=== PATIENT | female | born 1975 | race Caucasian/White ===

== ENCOUNTER 2018-05-23 17:58 | Observation (INO) ==
[2018-05-23] MEDS ORDERED: 0.9 % Sodium Chloride 1,000 ML IVC ONE (18:16)
[2018-05-23] MEDS ORDERED: Ondansetron 4 MG/2 ML VIAL IVP ONE (18:16)
[2018-05-23] MEDS ORDERED: *HR* HYDROmorphone (PF) 1 MG/ML SYRINGE IVP ONE ×2 (18:16→19:09)
--- NOTE | 2018-05-23 18:21 | Emergency Department Note ---
Disposition Clinical Impression: Kidney stone, Flank pain, KIARRA (acute kidney injury) Disposition: Admitted As Inpatient Condition: Good Time of Disposition: 19:12 Abdominal Pain HPI - General Chief Complaint: ED Abdominal Pain Stated Complaint: Kidney stones Time Seen by Provider: 05/23/18 18:10 Source: patient Mode of arrival: ambulatory Limitations: no limitations Nursing Notes Reviewed: Yes Vital Signs Reviewed: Yes - History of Present Illness HPI Narrative: Patient presents to the ED with the chief complaint of right flank pain. Patient has a history of a right-sided obstructing stone that she is followed by urology for and needs a lithotripsy. Was supposed to get an outpatient CAT scan today, but her insurance would not pay for it. Discussed with urology and they told her to come to the ER for pain got worse or she started vomiting. She states that she started vomiting this afternoon and the pain has intensified and is in her right flank and radiates around to her right lower quadrant. This is exactly like her previous kidney stone pain in the past. She has had hematuria. No fever, chills, chest pain, shortness of breath, other abdominal pain or diarrhea. No rash. Pain Scale: 9 - Related Data Home Medications Medication Instructions Recorded Confirmed Escitalopram [Lexapro] 20 mg PO DAILY 06/01/17 05/23/18 Topiramate [Topamax] 50 mg PO HS 06/01/17 05/23/18 Fluticasone Propionate Nasal 1 spr NS DAILY 02/24/18 05/23/18 [Flonase] Montelukast [Singulair] 10 mg PO DAILY 02/24/18 05/23/18 traZODone [TraZODone] 50 mg PO HS PRN 02/24/18 05/23/18 Loratadine [Allergy Relief] 10 mg PO DAILY 03/08/18 05/23/18 Buspirone HCl [Buspar] 10 mg PO BID PRN 05/23/18 05/23/18 Doxycycline 100 mg PO BID 05/23/18 05/23/18 HYDROcodone/Acet 5/325 mg [[place] 1 tab PO BID PRN 05/23/18 05/23/18 5-325 mg] Omeprazole [PriLOSEC] 20 mg PO DAILY 05/23/18 05/23/18 Previous Rx's Medication Instructions Recorded Aspirin 81 mg PO DAILY #30 tab.chew 03/09/18 Nitroglycerin 0.4 mg SL Q5MIN PRN #30 tab.subl 03/09/18 Potassium Chloride 40 meq PO BID #1 tab.er.prt 03/09/18 Allergies Allergy/AdvReac Type Severity Reaction Status Date / Time sulfamethoxazole Allergy See Verified 03/08/18 06:49 [From Bactrim] Comments trimethoprim [From Bactrim] Allergy See Verified 03/08/18 06:49 Comments diphenhydramine AdvReac See Verified 03/08/18 06:49 [From Benadryl] Comments Review of Systems: As reviewed in the HPI. All other systems reviewed are negative or normal. 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 Psychiatric history: Reports: depression - Social History Smoking status: Current every day smoker Alcohol use: Reports: none Drug use: Reports: none Physical Exam CONSTITUTIONAL: [Appears to be in pain, alert and in no acute distress] EYES: [EOMI, clear conjunctiva, PERRLA] HENT: [Normocephalic, atraumatic, moist mucus membranes, normal oropharynx] NECK: [normal inspection, full ROM, trachea midline, no obvious swelling] PULMONARY: [normal lung sounds bilaterally, normal chest rise and fall, no respiratory distress or stridor, no wheezes, no rales, no rhonchi CARDIOVASCULAR: [regular rate, regular rhythm, normal heart sounds, no murmurs, distal extremities are warm and well perfused] GASTROINSTESTINAL: [soft, non-tender, non-rigid, non-distended, no guarding, no rebound, normal bowel sounds] GENITOURINARY/RECTAL: [deferred] NEUROLOGIC: [Alert, oriented x3, normal speech, moves all extremities] EXTREMITIES: [Normal inspection, full ROM, no tenderness, no pedal edema, normal capillary refill] MUSCULOSKELETAL: [no gross deformities, atraumatic, right flank tenderness] SKIN: [No cyanosis, no diaphoresis, normal color, warm, no rash] PSYCHIATRIC: [normal mood and affect] - General General appearance: alert, in no apparent distress Course Course Narrative: Patient presenting with known obstructing stone. We will check labs, CT, pain control. - Reevaluation(s) Reevaluation #1: CT scan shows IMPRESSION: Interval transit of obstructing right renal stone, now in the distal right ureter proximal to the ureterovesicular junction. Mild upstream hydroureteronephrosis. Interval transit of 4 mm left ureteral stone, now in the downstream renal pelvis near the UPJ. No obstructing pelvocaliectasis. Reevaluation #2: Patient discussed with urology and wanted the patient admitted for likely stent placement and pain control. Reevaluation #3: Admitted the hospitalist service. They did request a urine and blood cultures, as well as a gram Rocephin. These were ordered. Also requested maintenance fluids which we will start. Vital Signs Temperature 98.3 F 05/23/18 18:03 Pulse Rate 59 05/23/18 18:03 Respiratory Rate 16 05/23/18 18:03 Blood Pressure 178/93 05/23/18 18:03 O2 Sat by Pulse Oximetry 99 05/23/18 18:03 Temperature 98.3 F 05/23/18 18:17 Pulse Rate 62 05/23/18 20:05 Respiratory Rate 14 05/23/18 20:05 Blood Pressure 149/75 05/23/18 20:05 O2 Sat by Pulse Oximetry 99 05/23/18 20:05 Oxygen Delivery Oxygen Delivery Room Air Abdominal Pain - Lab Data Result diagrams: 05/23/18 18:16 05/23/18 18:16 Lab Results 05/23/18 05/23/18 05/23/18 Range/Units 18:16 18:16 18:17 WBC 16.2 H (4.3-11.1) K/mcL RBC 4.52 (3.82-4.97) M/mcL Hgb 14.2 (11.5-15.4) g/dL Hct 42.2 (35.3-44.9) % MCV 93.4 (83.0-100.0) fL MCH 31.4 (28.0-33.3) pg MCHC 33.6 (31.6-35.5) g/dL RDW 12.4 (11.5-14.5) % Plt Count 385 (140-400) K/mcL MPV 9.3 L (9.4-12.4) fL Immature Gran % 0.6 (0-4) % Seg Neutrophils % 55.4 % Lymphocytes % 32.4 % Monocytes % 8.7 % Eosinophils % 2.2 % Basophils % 0.7 % Neutrophils # 9.0 H (1.6-8.9) K/mcL Lymphocytes # 5.2 H (0.6-4.6) K/mcL Monocytes # 1.4 H (0.0-1.3) K/mcL Eosinophils # 0.4 (0.0-0.6) K/mcL Basophils # 0.1 (0.0-0.2) K/mcL Sodium 142 (136-145) mEq/L Potassium 4.1 (3.5-5.1) mEq/L Chloride 110 H (98-107) mEq/L Carbon Dioxide 27 (23-29) mEq/L BUN 36 H (6-20) mg/dL Creatinine 1.15 (0.60-1.20) mg/dL Est GFR ( Amer) > 60 (> 60) Est GFR (Non-Af Amer) 51 L (> 60) BUN/Creatinine Ratio 31 H (6-26) Glucose 108 H (70-105) mg/dL Calculated Osmolality 303 H (280-300) Calcium 10.5 H (8.6-10.3) mg/dL Urine Color Yellow (Yellow) Urine Clarity Clear (Clear) Urine pH 6.0 (5.0-8.0) pH Units Ur Specific [place] >= 1.030 H (1.010-1.025) Urine Protein 30 H (Neg-Trace) mg/dL Urine Glucose (UA) Normal (Normal) mg/dL Urine Ketones Negative (Negative) mg/dL Urine Blood Large H (Negative) Urine Nitrite Negative (Negative) Urine Bilirubin Negative (Negative) Urine Urobilinogen Normal (Normal) mg/dL Ur Leukocyte Esterase Trace H (Negative) Urine Microscopic RBC TNTC H (0-3) per hpf Urine Microscopic WBC 3-5 H (0-3) per hpf Ur Squamous Epith Cells Many H (None-Few) per lpf Urine Bacteria Moderate H (None-Few) per hpf Urine Mucus Few (Few) Ur Culture Indicated? NO. A (NO)
[2018-05-23 18:26] LABS: Bilirubin,Urine Negative (Negative); Blood,Urine Large (Negative); Clarity,Urine Clear (Clear); Color,Urine Yellow (Yellow); Glucose,Urine (UA) Normal (Normal); Ketones,Urine Negative (Negative); Leukocyte Esterase,Urine Trace (Negative); Nitrite,Urine Negative (Negative); Protein,Urine 30 mg/dL (Neg-Trace); Specific Gravity,Urine >= 1.030 (1.010-1.025); Urobilinogen,Urine Normal (Normal)
[2018-05-23 18:38] LABS: Bacteria,Urine Moderate per hpf (None-Few); Mucus,Urine Few (Few); RBC,Urine TNTC per hpf (0-3); Squamous Epithelial Cell,Urine Many per lpf (None-Few)
[2018-05-23 18:41] LABS: Basophils # 0.1 K/mcL (0.0-0.2); Basophils % 0.7 %; Eosinophils # 0.4 K/mcL (0.0-0.6); Eosinophils % 2.2 %; Hematocrit 42.2 % (35.3-44.9); Hemoglobin 14.2 g/dL (11.5-15.4); Immature Granulocytes % 0.6 % (0-4); Lymphocytes # 5.2 K/mcL (0.6-4.6); Lymphocytes % 32.4 %; Mean Corpuscular HGB Conc 33.6 g/dL (31.6-35.5); Mean Corpuscular Hemoglobin 31.4 pg (28.0-33.3); Mean Corpuscular Volume 93.4 fL (83.0-100.0); Mean Platelet Volume 9.3 fL (9.4-12.4); Monocytes # 1.4 K/mcL (0.0-1.3); Monocytes % 8.7 %; Platelet Count 385 K/mcL (140-400); Red Blood Count 4.52 M/mcL (3.82-4.97); Red Cell Distribution Width 12.4 % (11.5-14.5); Segmented Neutrophils % 55.4 %
[2018-05-23 18:53] LABS: BUN/Creatinine Ratio 31 (6-26); Blood Urea Nitrogen 36 mg/dL (6-20); Calcium 10.5 mg/dL (8.6-10.3); Carbon Dioxide 27 mEq/L (23-29); Chloride 110 mEq/L (98-107); Glucose 108 mg/dL (70-105); Osmolality,Calculated 303 (280-300); Potassium 4.1 mEq/L (3.5-5.1); Sodium 142 mEq/L (136-145); eGFR For Non-African Americans 51 (> 60)
--- NOTE | 2018-05-23 19:15 | Emergency Department Note ---
Disposition Clinical Impression: Kidney stone, Flank pain, KIARRA (acute kidney injury) Disposition: Admitted As Inpatient Condition: Good General Adult HPI - General Chief complaint: ED Abdominal Pain Stated complaint: Kidney stones Time Seen by Provider: 05/23/18 18:10 Source: patient Mode of arrival: ambulatory Limitations: no limitations - History of Present Illness Pain Scale: 9 - Related Data Home Medications Medication Instructions Recorded Confirmed Escitalopram [Lexapro] 20 mg PO DAILY 06/01/17 05/23/18 Topiramate [Topamax] 50 mg PO HS 06/01/17 05/23/18 Fluticasone Propionate Nasal 1 spr NS DAILY 02/24/18 05/23/18 [Flonase] Montelukast [Singulair] 10 mg PO DAILY 02/24/18 05/23/18 traZODone [TraZODone] 50 mg PO HS PRN 02/24/18 05/23/18 Loratadine [Allergy Relief] 10 mg PO DAILY 03/08/18 05/23/18 Buspirone HCl [Buspar] 10 mg PO BID PRN 05/23/18 05/23/18 Doxycycline 100 mg PO BID 05/23/18 05/23/18 HYDROcodone/Acet 5/325 mg [[place] 1 tab PO BID PRN 05/23/18 05/23/18 5-325 mg] Omeprazole [PriLOSEC] 20 mg PO DAILY 05/23/18 05/23/18 Previous Rx's Medication Instructions Recorded Aspirin 81 mg PO DAILY #30 tab.chew 03/09/18 Nitroglycerin 0.4 mg SL Q5MIN PRN #30 tab.subl 03/09/18 Potassium Chloride 40 meq PO BID #1 tab.er.prt 03/09/18 Allergies Allergy/AdvReac Type Severity Reaction Status Date / Time sulfamethoxazole Allergy See Verified 03/08/18 06:49 [From Bactrim] Comments trimethoprim [From Bactrim] Allergy See Verified 03/08/18 06:49 Comments diphenhydramine AdvReac See Verified 03/08/18 06:49 [From Benadryl] Comments Past Medical History - Past Medical History Medical history: Reports: kidney stones Surgical history: Reports: orthopedic, other, ureteral stent, other Psychiatric history: Reports: depression 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 - Social History Smoking Status: Current every day smoker Smokeless Tobacco Status: No Alcohol use: Reports: none Drug use: Reports: none Physical Exam - General Limitations: no limitations General appearance: alert, in no apparent distress Course Vital Signs Temperature 98.3 F 05/23/18 18:03 Pulse Rate 59 05/23/18 18:03 Respiratory Rate 16 05/23/18 18:03 Blood Pressure 178/93 05/23/18 18:03 O2 Sat by Pulse Oximetry 99 05/23/18 18:03 Temperature 98.3 F 05/23/18 18:17 Pulse Rate 62 05/23/18 20:05 Respiratory Rate 14 05/23/18 20:05 Blood Pressure 149/75 05/23/18 20:05 O2 Sat by Pulse Oximetry 99 05/23/18 20:05 Oxygen Delivery Oxygen Delivery Room Air Medical Decision Making - Lab Data Result diagrams: 05/23/18 18:16 05/23/18 18:16 Lab Results 05/23/18 05/23/18 05/23/18 Range/Units 18:16 18:16 18:17 WBC 16.2 H (4.3-11.1) K/mcL RBC 4.52 (3.82-4.97) M/mcL Hgb 14.2 (11.5-15.4) g/dL Hct 42.2 (35.3-44.9) % MCV 93.4 (83.0-100.0) fL MCH 31.4 (28.0-33.3) pg MCHC 33.6 (31.6-35.5) g/dL RDW 12.4 (11.5-14.5) % Plt Count 385 (140-400) K/mcL MPV 9.3 L (9.4-12.4) fL Immature Gran % 0.6 (0-4) % Seg Neutrophils % 55.4 % Lymphocytes % 32.4 % Monocytes % 8.7 % Eosinophils % 2.2 % Basophils % 0.7 % Neutrophils # 9.0 H (1.6-8.9) K/mcL Lymphocytes # 5.2 H (0.6-4.6) K/mcL Monocytes # 1.4 H (0.0-1.3) K/mcL Eosinophils # 0.4 (0.0-0.6) K/mcL Basophils # 0.1 (0.0-0.2) K/mcL Sodium 142 (136-145) mEq/L Potassium 4.1 (3.5-5.1) mEq/L Chloride 110 H (98-107) mEq/L Carbon Dioxide 27 (23-29) mEq/L BUN 36 H (6-20) mg/dL Creatinine 1.15 (0.60-1.20) mg/dL Est GFR ( Amer) > 60 (> 60) Est GFR (Non-Af Amer) 51 L (> 60) BUN/Creatinine Ratio 31 H (6-26) Glucose 108 H (70-105) mg/dL Calculated Osmolality 303 H (280-300) Calcium 10.5 H (8.6-10.3) mg/dL Urine Color Yellow (Yellow) Urine Clarity Clear (Clear) Urine pH 6.0 (5.0-8.0) pH Units Ur Specific [place] >= 1.030 H (1.010-1.025) Urine Protein 30 H (Neg-Trace) mg/dL Urine Glucose (UA) Normal (Normal) mg/dL Urine Ketones Negative (Negative) mg/dL Urine Blood Large H (Negative) Urine Nitrite Negative (Negative) Urine Bilirubin Negative (Negative) Urine Urobilinogen Normal (Normal) mg/dL Ur Leukocyte Esterase Trace H (Negative) Urine Microscopic RBC TNTC H (0-3) per hpf Urine Microscopic WBC 3-5 H (0-3) per hpf Ur Squamous Epith Cells Many H (None-Few) per lpf Urine Bacteria Moderate H (None-Few) per hpf Urine Mucus Few (Few) Ur Culture Indicated? NO. A (NO) Attestation Statement - Attestation Attestation: I examined this patient and my medical decision-making was reviewed with the Resident Physician. I agree with the documented findings, disposition and treatment plan as described except to the extent set forth below. Patient presents to the emergency department she compared left leg pain. Patient has a known kidney stone that she has been trying to pass for a month. She had a CT at that time that showed a 4 mg stone. She states that the pain got worse. She was sent in by urology. On examination she does not appear to be in any acute distress. She has right-sided CVA tenderness with percussion. Plan. CT scan shows a 5 mm stone moving towards the UVJ. She also has an obstructing stone on the left that is 4 millimeters at the UPJ. We will discuss with urology. Patient admitted to medicine with urology consult. Abdomen/Pelvis CT 05/23/18 18:17 IMPRESSION: Interval transit of obstructing right renal stone, now in the distal right ureter proximal to the ureterovesicular junction. Mild upstream hydroureteronephrosis. Interval transit of 4 mm left ureteral stone, now in the downstream renal pelvis near the UPJ. No obstructing pelvocaliectasis. D/ / 05/23/2018 19:07:28 Ho Mart / jojo Interpreting Provider: Ho Mart
[2018-05-23] MEDS ORDERED: cefTRIAXone 1,000 MG in Water for inj. (sterile) 20 ML 10 ML IVP ONE (19:28)
[2018-05-23] MEDS ORDERED: Naloxone 0.4 MG/ML INJ IVP PRN (19:52)
[2018-05-23] MEDS ORDERED: Ondansetron 4 MG/2 ML VIAL IVP PRN (19:52)
[2018-05-23] MEDS ORDERED: OXYCODONE Oral CONC 10 MG/0.5 ML ORAL.SYG SL PRN (19:52)
--- NOTE | 2018-05-23 20:02 | Internal Med History&Physical ---
Date of Encounter: 05/24/18 Time of Encounter: 20:01 Internal Medicine - H&P: HPI Chief complaint: Flank Pain History of present illness: Ms. Muller is a 42 year old female with a past medical history of kidney stones who presents with worsening flank pain. Patient reports intermittent flank pain that initially began once back on April 25 associated with hematuria. Patient was seen and evaluated here at [facility] and discharge with follow-up with urology and has been receiving workup for her kidney stones. However, pain became unbearable earlier today and was associated with nausea and vomiting 2. She subsequently decided to come into the ED. CT of the abdomen and pelvis showed interval transitive obstructing right renal stone now in the distal right ureter proximal to the ureteral vesicular junction with mild obstructive hydronephrosis and a 4 mm left ureteral stone now and the downstream remarkable pelvis near the UPJ. She denies any fever, chills, dizziness, chest pain, shortness of breath. Patient was hemodynamically stable, afebrile and nonseptic upon arrival. Past Med Surg Social Fam HX - Past Medical History Medical history: kidney stones Additional medical history: heart murmur Psychiatric history: depression - Past Surgical History Surgical History: orthopedic, other, ureteral stent, other Additional surgical history: right fallopian tube removed. bilateral carpal tunnel - Social History Smoking Status: Current every day smoker Smokeless Tobacco Status: No Alcohol use: none Drug use: none - Family History Mother Living Status: Still Living Hx Family Cardiac Disorders: Yes Hx Family Cancer: Yes (breast cancer) Hx Family GI Disorders: No Hx Family Endocrine Disorder: Yes Internal Medicine - H&P: Meds Escitalopram [Lexapro] 20 mg PO DAILY 06/01/17 [History] Topiramate [Topamax] 50 mg PO HS 06/01/17 [History] Fluticasone Propionate Nasal [Flonase] 1 spr NS DAILY 02/24/18 [History] Montelukast [Singulair] 10 mg PO DAILY 02/24/18 [History] traZODone [TraZODone] 50 mg PO HS PRN 02/24/18 [History] Loratadine [Allergy Relief] 10 mg PO DAILY 03/08/18 [History] Aspirin 81 mg PO DAILY #30 tab.chew 03/09/18 [Rx] Nitroglycerin 0.4 mg SL Q5MIN PRN #30 tab.subl 03/09/18 [Rx] Potassium Chloride 40 meq PO BID #1 tab.er.prt 03/09/18 [Rx] Buspirone HCl [Buspar] 10 mg PO BID PRN 05/23/18 [History] Doxycycline 100 mg PO BID 05/23/18 [History] HYDROcodone/Acet 5/325 mg [[place] 5-325 mg] 1 tab PO BID PRN 05/23/18 [History] Omeprazole [PriLOSEC] 20 mg PO DAILY 05/23/18 [History] 3 Allergy/AdvReac Type Severity Reaction Status Date / Time sulfamethoxazole Allergy See Verified 03/08/18 06:49 [From Bactrim] Comments trimethoprim [From Bactrim] Allergy See Verified 03/08/18 06:49 Comments diphenhydramine AdvReac See Verified 03/08/18 06:49 [From Benadryl] Comments All Systems PM: A 10-system review of systems was performed and is negative for pertinent findings except as documented above in the HPI. - Constitutional Constitutional: no chills, no fever(s), no night sweats - EENT Eyes: no change in vision, no discharge, no pain, no photophobia Ears: no ear discharge, no ear pain, no tinnitus Nose, mouth and throat: no dysphagia, no nasal discharge, no neck pain, no sore throat - Cardiovascular Cardiovascular ROS IM: no chest pain, no diaphoresis, no dyspnea, no lightheadedness, no palpitations, no syncope - Respiratory Respiratory: no cough, no dyspnea, no wheezing, no excessive phlegm production - Gastrointestinal Gastrointestinal: no abdominal pain, no diarrhea, no hematemesis, no hematochezia, no melena, no nausea, no vomiting - Genitourinary Genitourinary: no change in urinary stream, no dysuria, no flank pain, no hematuria - Musculoskeletal Musculoskeletal ROS IM: no numbness, no tingling - Integumentary Integumentary IM: no rash, no unusual bruising - Neurological Neurological ROS: no confusion, no convulsions, no focal weakness, no numbness, no tingling, no tremor(s) - Hematologic/Lymphatic Hematologic/Lymphatic: no easy bruising - Constitutional Vitals: Temp Pulse Resp BP Pulse Ox 98.3 F 59 16 178/93 99 05/23/18 18:17 05/23/18 18:17 05/23/18 18:17 05/23/18 18:17 05/23/18 18:17 Exam: General: Alert and oriented 3; lying in bed in no acute distress Skin:Normal color, no rash, no lesions. HEENT:EOM, pupils equal, round and reactive. Cardiovascular:Normal S1 & S2, no rubs, murmurs or gallops. No JVD. Pulse regular. Lungs:Normal breath sounds, no wheezes or crackles. Abdomen:Soft, non-tender, no rigidity. No CVA tenderness Extremities:No deformity, no edema or tenderness, no joint swelling or clubbing. Neurological:Normal cognition and motor skills. Pulses:Carotid and radial pulses normal +2. Rest of the physical exam is non contributory Internal Med - H&P Results - Labs CBC & Chem 7: 05/24/18 03:58 05/24/18 03:58 - Assessment and plan (1) Flank pain Current Visit: Yes Status: Acute Assessment and plan: Flank pain in the setting of nephrolithiasis. Pain control (2) Kidney stone Current Visit: Yes Status: Acute Assessment and plan: CT of the abdomen shows interval transitive obstructing right renal stone, now in the distal right ureter proximal to the ureterovesicular junction. Mild upstream hydro-ureteral hydronephrosis. Interval transitive 4 mm left ureteral stone, now in the downstream renal pelvis near the UPJ. No obstructing pelvocaliectasis. Patient receiving moderately aggressive fluid support. Pain control. Patient received 1 dose of ceftriaxone in the ED. Blood and urine cultures were obtained. Urology on board. Patient made nothing by mouth after midnight for possible (3) UTI (urinary tract infection) Current Visit: Yes Status: Acute Assessment and plan: Patient received 1 dose of Rocephin. Urine cultures pending Qualifiers: Urinary tract infection type: site unspecified Hematuria presence: with hematuria Qualified Code(s): N39.0 - Urinary tract infection, site not specified; R31.9 - Hematuria, unspecified (4) DVT prophylaxis Current Visit: No Status: Acute - Time Spent With Patient Total time spent is greater than 50% in coordination of care (as documented) at patient's floor/unit and/or counseling patient:
--- NOTE | 2018-05-23 20:21 | Anesthesia Evaluation PreOp ---
Date of Encounter: 05/23/18 Time of Encounter: 20:19 - Past History Planned Operation: [facility] Ureteroscopic stone extraction Cardiac History: Other (02/2018: Atypical chest pain. Troponin negative. No ischemic ECG changes. Suspect discomfort is musculoskeletal in etiology. Underwent nuclear stress test (no chest pain on treadmill) which was found to be mildly abnormal--low risk stress test findings. 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) Other Medical History: Renal (stones), GERD Anesthesia History: No Prior Anesthetic Complications, Past Anesthesia ( ureteral stent, [facility], R salpingectomy) Alcohol Use: none Drug use: none Medications and Allergies Escitalopram [Lexapro] 20 mg PO DAILY 06/01/17 [History] Topiramate [Topamax] 50 mg PO HS 06/01/17 [History] Fluticasone Propionate Nasal [Flonase] 1 spr NS DAILY 02/24/18 [History] Montelukast [Singulair] 10 mg PO DAILY 02/24/18 [History] traZODone [TraZODone] 50 mg PO HS PRN 02/24/18 [History] Loratadine [Allergy Relief] 10 mg PO DAILY 03/08/18 [History] Aspirin 81 mg PO DAILY #30 tab.chew 03/09/18 [Rx] Nitroglycerin 0.4 mg SL Q5MIN PRN #30 tab.subl 03/09/18 [Rx] Potassium Chloride 40 meq PO BID #1 tab.er.prt 03/09/18 [Rx] Buspirone HCl [Buspar] 10 mg PO BID PRN 05/23/18 [History] Doxycycline 100 mg PO BID 05/23/18 [History] HYDROcodone/Acet 5/325 mg [[place] 5-325 mg] 1 tab PO BID PRN 05/23/18 [History] Omeprazole [PriLOSEC] 20 mg PO DAILY 05/23/18 [History] 3 Allergy/AdvReac Type Severity Reaction Status Date / Time sulfamethoxazole Allergy See Verified 03/08/18 06:49 [From Bactrim] Comments trimethoprim [From Bactrim] Allergy See Verified 03/08/18 06:49 Comments diphenhydramine AdvReac See Verified 07/17/18 06:49 [From Benadryl] Comments - Meds/Allergy Pre-op Review Medications Reviewed: Yes Allergies Reviewed: Yes Beta Blockers on Current Med List: No Anesthesia Results - Labs 05/23/18 18:16 05/23/18 18:16 - Imaging Additional studies: 01/09/2016 Echo Impressions: Normal LV chamber size, wall thickness, and systolic function. LVEF 60-65%. Indeterminate diastolic function. Normal right ventricular structure and function. Mild mitral regurgitation. No evidence of pulmonary hypertension. 05/09/2015 Stress Impressions: The exercise capacity was average. Patient exercised for 6:38 minutes on a Garcia protocol, achieving 7 METs and 89% of max predicted heart rate. The patient had chest tightness during exercise. Stress ECG is negative for ischemia. Anesthesia Exam Vital Signs/O2 Sat, Most Current Temp Pulse Resp BP Pulse Ox 98.3 F 62 14 149/75 99 05/23/18 18:17 05/23/18 20:05 05/23/18 20:05 05/23/18 20:05 05/23/18 20:05 Weight: 97kg NPO (# of Hours): MN - HEENT Pupil (Motor): Pupils equal, EOMI Mallampati: II Teeth: Missing, Poor dentition Oral Opening: Greater than 3 - MANAGEMENT SERVICES TECHNICIAN LOC: Oriented MANAGEMENT SERVICES TECHNICIAN Motor: Normal RUE, Normal LUE, Normal RLE, Normal LLE, Normal Face MANAGEMENT SERVICES TECHNICIAN Sensory: Normal: RUE, LUE, RLE, LLE, Face - Cardiac Rhythm: Regular - Pulmonary Breath Sounds: bilateral Clear Respiratory Effort: Symmetrical Anesthesia Assess/Plan ASA Score: 2 Modified Raman Scale for Level of Consciousness: Cooperative, oriented, and tranquil Anesthetic Plan: General Monitoring Plan: Standard Monitors Recovery Plan: PACU
[2018-05-23] MEDS: Ketorolac 15 MG/ML VIAL IVP PRN (21:50)
[2018-05-23] MEDS: *HR* Heparin 5,000 UNIT/ML VIAL SQ SCH (22:09)
[2018-05-23] MEDS: 0.9 % Sodium Chloride 1,000 ML IVC SCH (23:03)
[2018-05-24] MEDS: *HR* Heparin 5,000 UNIT/ML VIAL SQ SCH ×3 (05:20→21:31)
[2018-05-24 05:32] LABS: Basophils # 0.1 K/mcL (0.0-0.2); Basophils % 0.5 %; Eosinophils # 0.3 K/mcL (0.0-0.6); Eosinophils % 1.7 %; Hematocrit 39.1 % (35.3-44.9); Immature Granulocytes % 0.4 % (0-4); Lymphocytes # 3.4 K/mcL (0.6-4.6); Mean Corpuscular HGB Conc 32.2 g/dL (31.6-35.5); Mean Corpuscular Volume 96.3 fL (83.0-100.0); Mean Platelet Volume 9.8 fL (9.4-12.4); Monocytes # 1.3 K/mcL (0.0-1.3); Monocytes % 7.9 %; Neutrophils # 11.1 K/mcL (1.6-8.9); Platelet Count 343 K/mcL (140-400); Red Blood Count 4.06 M/mcL (3.82-4.97); Red Cell Distribution Width 12.5 % (11.5-14.5); Segmented Neutrophils % 68.5 %
[2018-05-24 05:39] LABS: Hemoglobin 12.6 g/dL (11.5-15.4)
[2018-05-24] MEDS: 0.9 % Sodium Chloride 1,000 ML IVC SCH ×3 (05:47→21:29)
[2018-05-24] MEDS: Ketorolac 15 MG/ML VIAL IVP PRN ×3 (05:49→20:45)
[2018-05-24 05:50] LABS: Alanine Aminotransferase 10 Units/L (7-52); Albumin 3.2 g/dL (3.5-5.7); Albumin/Globulin Ratio 1.3 (1.1-2.2); Alkaline Phosphatase 95 Units/L (34-104); Aspartate Amino Transferase 12 Units/L (13-39); BUN/Creatinine Ratio 32 (6-26); Bilirubin,Total 0.2 mg/dL (0.3-1.0); Blood Urea Nitrogen 28 mg/dL (6-20); Calcium 9.7 mg/dL (8.6-10.3); Carbon Dioxide 27 mEq/L (23-29); Chloride 112 mEq/L (98-107); Globulin 2.4 g/dL (2.4-3.5); Glucose 93 mg/dL (70-105); Osmolality,Calculated 301 (280-300); Potassium 3.5 mEq/L (3.5-5.1); Sodium 143 mEq/L (136-145); Total Protein 5.6 g/dL (6.4-8.9); eGFR For Non-African Americans > 60 (> 60)
--- NOTE | 2018-05-24 08:06 | Internal Med Progress Note ---
Hospitalist Progress Note - Encounter Date of Encounter: 05/24/18 Time of Encounter: 08:03 - Subjective Interval History: Patient with no significant medical history except for smoking history had known kidney stone being followed by urology admitted with nausea vomiting and right flank pain evaluation consistent with the kidney stone with mild hydronephrosis patient is nothing by mouth will be seen by urology and plan for intervention today patient pain is now better controlled no fever or chills UA shows UTI associated with the kidney stone started on Rocephin IV - Exam Vitals: Temp Pulse Resp BP Pulse Ox 97.8 F 67 15 114/64 94 05/24/18 06:52 05/24/18 06:52 05/24/18 06:52 05/24/18 06:52 05/24/18 06:52 Exam: heent norml chest bilat clear CV RRR s1 s2 normal no murmur abd soft mild right flnk tenderness ext no edema - Assessment and Plan (1) UTI (urinary tract infection) Current Visit: Yes Status: Acute Assessment and Plan: UTI associated with a kidney stone patient is on IV Rocephin Cultures pending (2) Leukocytosis Current Visit: Yes Status: Acute Assessment and Plan: Secondary to her acute infection (3) Obesity Current Visit: Yes Status: Chronic (4) Kidney stone Current Visit: Yes Status: Acute Assessment and Plan: Urology consult evaluation is pending patient is nothing by mouth plan for possible intervention today - Time Spent with Patient Total time spent is greater than 50% in coordination of care (as documented) at patient's floor/unit and/or counseling patient: Internal Medicine: Result - Labs CBC & Chem 7: 05/24/18 03:58 05/24/18 03:58 Labs: Short CBC 05/24/18 Range/Units 03:58 WBC 16.3 H (4.3-11.1) K/mcL Hgb 12.6 D (11.5-15.4) g/dL Hct 39.1 (35.3-44.9) % Plt Count 343 (140-400) K/mcL Neutrophils # 11.1 H (1.6-8.9) K/mcL BMP 05/24/18 03:58 Sodium 143 Potassium 3.5 Chloride 112 H Carbon Dioxide 27 BUN 28 H Creatinine 0.88 Glucose 93 Calcium 9.7 Liver Function 10/02/18 Range/Units 03:58 Total Bilirubin 0.2 L (0.3-1.0) mg/dL AST 12 L (13-39) Units/L ALT 10 (7-52) Units/L Alkaline Phosphatase 95 (34-104) Units/L Albumin 3.2 L (3.5-5.7) g/dL Consult Discharge Plan - Plan Referrals: Yamileth Tena CNP [Primary Care Provider] - Eloy Mcqueen MD [Partnered Physician] - (1) UTI (urinary tract infection) Qualifiers: Urinary tract infection type: acute cystitis Hematuria presence: with hematuria Qualified Code(s): N30.01 - Acute cystitis with hematuria (2) Leukocytosis Qualifiers: Leukocytosis type: bandemia Qualified Code(s): D72.825 - Bandemia (3) Obesity Qualifiers: Obesity type: due to excess calories Obesity classification: unspecified obesity classification Serious obesity comorbidity presence: unspecified whether serious comorbidity present Qualified Code(s): E66.09 - Other obesity due to excess calories
--- NOTE | 2018-05-24 08:11 | Urology - Consult Note ---
Date of Encounter: 05/24/18 Time of Encounter: 08:08 - Assessment and Plan (1) Kidney stone Current Visit: Yes Status: Acute Assessment and plan: Patient is a 42-year-old female who presents with a right distal 4-5 mm ureteral stone with mild hydroureter and 4 mm left proximal stone. Given the patient's acute presentation, it was decided to go ahead and proceed with stone extraction. Patient has been counseled the risks and benefits of surgery, she has verbalized understanding, and consent has been signed. Patient is prepared to undergo a bilateral ureteroscopic stone extraction with holmium laser lithotripsy, basket retrieval, and bilateral ureteral stent placement on [address] Mcqueen. Patient will remain nothing by mouth. (2) UTI (urinary tract infection) Current Visit: Yes Status: Acute Assessment and plan: Patient is a 42-year-old female who presents with bilateral ureteral stones and urinary tract infection. Vital signs are stable and afebrile. Patient has been placed on intravenous Rocephin. Blood cultures and urine cultures are pending. Qualifiers: Urinary tract infection type: acute cystitis Hematuria presence: with hematuria Qualified Code(s): N30.01 - Acute cystitis with hematuria Urology CN:HPI Consult date: 05/24/18 History of present illness: Patient is a 42 year old female who presents with right flank pain, nausea, and vomiting. Patient is established with Dr. Staton and was planning stone extraction. CT reveals obstructing right distal ureteral stone 4-5mm and proximal left 4mm ureteral stone near UPJ. Patient states pain is currently well controlled. Patient states last ureteral stone was approximately 4 years ago, and she underwent ESWL and ureteral stent placement. Patient has a positive family history of renal stones through her mother. Patient denies gross hematuria, fever, chills. Past Med Surg Social Fam HX - Past Medical History Medical history: kidney stones Additional medical history: Mitral regurgitation, enlarged heart Psychiatric history: depression - Past Surgical History Surgical History: orthopedic, other, ureteral stent, other Additional surgical history: right fallopian tube removed. bilateral carpal tunnel - Social History Smoking Status: Current every day smoker Packs per day: 1 Smokeless Tobacco Status: No Alcohol use: none Drug use: none - Family History Mother Living Status: Still Living Hx Family Cardiac Disorders: Yes Hx Family Cancer: Yes (breast cancer) Hx Family GI Disorders: No Hx Family Endocrine Disorder: Yes Medications and Allergies Escitalopram [Lexapro] 20 mg PO DAILY 06/01/17 [History] Topiramate [Topamax] 50 mg PO HS 06/01/17 [History] Fluticasone Propionate Nasal [Flonase] 1 spr NS DAILY 02/24/18 [History] Montelukast [Singulair] 10 mg PO DAILY 02/24/18 [History] traZODone [TraZODone] 50 mg PO HS PRN 02/24/18 [History] Loratadine [Allergy Relief] 10 mg PO DAILY 03/08/18 [History] Aspirin 81 mg PO DAILY #30 tab.chew 03/09/18 [Rx] Nitroglycerin 0.4 mg SL Q5MIN PRN #30 tab.subl 03/09/18 [Rx] Potassium Chloride 40 meq PO BID #1 tab.er.prt 03/09/18 [Rx] Buspirone HCl [Buspar] 10 mg PO BID PRN 05/23/18 [History] Doxycycline 100 mg PO BID 05/23/18 [History] HYDROcodone/Acet 5/325 mg [[place] 5-325 mg] 1 tab PO BID PRN 05/23/18 [History] Omeprazole [PriLOSEC] 20 mg PO DAILY 05/23/18 [History] 3 Allergy/AdvReac Type Severity Reaction Status Date / Time sulfamethoxazole Allergy See Verified 03/08/18 06:49 [From Bactrim] Comments trimethoprim [From Bactrim] Allergy See Verified 03/08/18 06:49 Comments diphenhydramine AdvReac See Verified 03/08/18 06:49 [From Benadryl] Comments Review of Systems - Constitutional no chills, no fatigue, no fever(s) - EENT Nose, mouth and throat: no dizziness, no headache(s) - Cardiovascular no chest pain, no dyspnea - Respiratory no cough, no dyspnea - Gastrointestinal abdominal pain, nausea, vomiting - Genitourinary Genitourinary: flank pain (right), no difficulty urinating, no dysuria, no hematuria, no urinary frequency, no urinary hesitancy, no urinary urgency - Musculoskeletal back pain, no muscle weakness, no numbness - Integumentary no erythema, no rash, no swelling - Neurological no confusion, no syncope - Psychiatric no anxiety, no confusion - Hematologic/Lymphatic no easy bleeding, no easy bruising - Allergic/Immunologic no throat swelling, no wheezing Exam Initial Vital Signs Temp Pulse Resp BP Pulse Ox 98.3 F 59 16 178/93 99 05/23/18 18:03 05/23/18 18:03 05/23/18 18:03 05/23/18 18:03 05/23/18 18:03 - General physical appearance Present: well developed, no distress, no pain - Eyes Present: PERRL, normal ocular movement - ENT Present: normal nares, no hearing loss, no congestion - Neck Present: no masses, trachea midline - Respiratory Present: normal respiratory effort - Cardiovascular Cardiovascular exam IM: RRR - Abdomen Abdomen: Present: soft, non tender - Integumentary Present: no rash, no growths, no abnormal pigmentation - Neurologic Present: normal coordination - Musculoskeletal Present: other (no pedal edema ) Urology Results - Labs 05/24/18 03:58 05/24/18 03:58 Abnormal lab results WBC 16.3 K/mcL (4.3-11.1) H 05/24/18 03:58 Neutrophils # 11.1 K/mcL (1.6-8.9) H 05/24/18 03:58 Chloride 112 mEq/L (98-107) H 05/24/18 03:58 BUN 28 mg/dL (6-20) H 05/24/18 03:58 BUN/Creatinine Ratio 32 (6-26) H 05/24/18 03:58 Calculated Osmolality 301 (280-300) H 05/24/18 03:58 Total Bilirubin 0.2 mg/dL (0.3-1.0) L 05/24/18 03:58 AST 12 Units/L (13-39) L 05/24/18 03:58 Serum Total Protein 5.6 g/dL (6.4-8.9) L 05/24/18 03:58 Albumin 3.2 g/dL (3.5-5.7) L 05/24/18 03:58 Ur Specific [place] >= 1.030 (1.010-1.025) H 05/23/18 18:17 Urine Protein 30 mg/dL (Neg-Trace) H 05/23/18 18:17 Urine Blood Large (Negative) H 05/23/18 18:17 Ur Leukocyte Esterase Trace (Negative) H 05/23/18 18:17 Urine Microscopic RBC TNTC per hpf (0-3) H 05/23/18 18:17 Urine Microscopic WBC 3-5 per hpf (0-3) H 05/23/18 18:17 Ur Squamous Epith Cells Many per lpf (None-Few) H 05/23/18 18:17 Urine Bacteria Moderate per hpf (None-Few) H 05/23/18 18:17 Ur Culture Indicated? NO. (NO) A 05/23/18 18:17 Diabetes panel 05/24/18 Range/Units 03:58 Sodium 143 (136-145) mEq/L Potassium 3.5 (3.5-5.1) mEq/L Chloride 112 H (98-107) mEq/L Carbon Dioxide 27 (23-29) mEq/L BUN 28 H (6-20) mg/dL Creatinine 0.88 (0.60-1.20) mg/dL Glucose 93 (70-105) mg/dL Calcium 9.7 (8.6-10.3) mg/dL AST 12 L (13-39) Units/L ALT 10 (7-52) Units/L Alkaline Phosphatase 95 (34-104) Units/L Albumin 3.2 L (3.5-5.7) g/dL Calcium panel 05/24/18 Range/Units 03:58 Calcium 9.7 (8.6-10.3) mg/dL Albumin 3.2 L (3.5-5.7) g/dL Pituitary panel 05/24/18 Range/Units 03:58 Sodium 143 (136-145) mEq/L Potassium 3.5 (3.5-5.1) mEq/L Chloride 112 H (98-107) mEq/L Carbon Dioxide 27 (23-29) mEq/L BUN 28 H (6-20) mg/dL Creatinine 0.88 (0.60-1.20) mg/dL Glucose 93 (70-105) mg/dL Calcium 9.7 (8.6-10.3) mg/dL Adrenal panel 05/24/18 Range/Units 03:58 Sodium 143 (136-145) mEq/L Potassium 3.5 (3.5-5.1) mEq/L Chloride 112 H (98-107) mEq/L Carbon Dioxide 27 (23-29) mEq/L BUN 28 H (6-20) mg/dL Creatinine 0.88 (0.60-1.20) mg/dL Glucose 93 (70-105) mg/dL Calcium 9.7 (8.6-10.3) mg/dL Total Bilirubin 0.2 L (0.3-1.0) mg/dL AST 12 L (13-39) Units/L ALT 10 (7-52) Units/L Alkaline Phosphatase 95 (34-104) Units/L Albumin 3.2 L (3.5-5.7) g/dL All other labs normal. - Imaging CT scan - abdomen: report reviewed, image reviewed CT scan - pelvis: report reviewed, image reviewed Consult Discharge Plan - Plan Referrals: Yamileth Tena CNP [Primary Care Provider] - Eloy Mcqueen MD [Partnered Physician] -
[2018-05-24] MEDS ORDERED: Dexamethasone 4 MG/ML VIAL ONE (10:43)
[2018-05-24] MEDS ORDERED: *HR* Midazolam HCl 2 MG/2 ML VIAL ONE (10:43)
[2018-05-24] MEDS ORDERED: Lidocaine -MPF 2% 2 ML VIAL ONE (10:43)
[2018-05-24] MEDS ORDERED: Ondansetron 4 MG/2 ML VIAL ONE (10:43)
[2018-05-24] MEDS ORDERED: *HR* Propofol 200 MG/20 ML VIAL IVP ONE (10:43)
[2018-05-24] MEDS ORDERED: *HR* FentaNYL (PF) 100 MCG/2 ML VIAL ONE (10:43)
[2018-05-24] MEDS ORDERED: Isovue-300 50 ML VIAL IVP ONE (11:54)
--- NOTE | 2018-05-24 12:49 | Operative Note ---
Date of procedure: 05/24/18 Pre-op diagnosis: Bilateral ureteral stones Post-op diagnosis: same Procedure: Bilateral ureteroscopy, laser lithotripsy, basket stone extraction, and stent placement Implants: Bilateral 4.8-[place] by 26 cm double-J stents Complications: None Anesthesia: GETA Surgeon: Eloy Mcquene Was there an inventory control assistant present: No Estimated blood loss (cc): 1 Specimen: Bilateral kidney stones Condition: stable Disposition: PACU Procedure in Detail: Indications: Shelli is a 42-year-old female who presents with right flank pain. A CT scan showed a distal right ureteral stone. In addition she was seen to have an obstructing left proximal ureteral stone. She was admitted for pain control. She elected to undergo a bilateral ureteroscopy, laser lithotripsy, and stent placement. She was aware of the risks of the procedure including but not limited to bleeding, infection, injury to other structures, need for further procedures, need for stent, stent irritation, incomplete treatment, and the risk of anesthesia. She is willing to proceed. Procedure: After informed consent was obtained the patient was brought back to the operating room and placed in supine position. A time out was performed. General anesthesia was administered and an LMA was placed. She was then placed in the lithotomy position. She was prepped and draped in the usual sterile fashion. Cystoscopy was performed. The anterior urethra was normal. There was no evidence of bladder tumors. The ureteral orifices were in the normal orthotopic position. There was no duplication of the ureteral orifices. The sensor wire was placed in the right ureteral orifice, and it was brought into the kidney under fluoroscopic guidance. I then advanced the semirigid ureteroscope into the ureter. The stone was fragmented using the 200 micron fiber. The stone fragments were then basket extracted. A 4.8 [place] by 26cm JJ stent was then placed with good curl seen in the kidney and the bladder. The dangle string was left intact. A sensor wire was placed up the left ureteral orifice. The left ureter was dilated with 8/10-[place] renal dilator. The zip wire was placed. The 11/13- [place] sheath was placed. The flexible ureteroscope was advanced and the kidney. The stone had migrated into the kidney. The stone was fragmented using [id number] micron laser fiber. The stone fragments were basket extracted. A 4.8-[place] by 26 cm JJ stent was then placed with good curl seen in the kidney and the bladder. The dangle string was left intact. The bladder was drained. The patient was then awakened from general anesthesia and brought to recovery room in good condition. All sponge, needle, and instrument counts were correct
--- NOTE | 2018-05-24 13:14 | Anesthesia Evaluation Post Op ---
Date of Encounter: 05/24/18 Time of Encounter: 13:11 - Vital Signs Vital Signs: Vital Signs Temperature 98.3 F 05/23/18 18:03 Pulse Rate 59 05/23/18 18:03 Respiratory Rate 16 05/23/18 18:03 Blood Pressure 178/93 05/23/18 18:03 O2 Sat by Pulse Oximetry 99 05/23/18 18:03 Temperature 97.8 F 05/24/18 06:52 Pulse Rate 67 05/24/18 06:52 Respiratory Rate 15 05/24/18 06:52 Blood Pressure 114/64 05/24/18 06:52 O2 Sat by Pulse Oximetry 94 05/24/18 06:52 Oxygen Delivery Oxygen Delivery Room Air - Lungs Lungs: Clear Ascult./Percussion - Airway Airway: Non-obstructed - Cardiovascular Regular Rate - Mental Status Mental Status: Alert & Oriented, Answers Appropriately - Pain Pain Scale: 2 Pain Scale used: Numeric (1 - 10) - Nausea Vomiting Nausea Vomiting: Not Present - Hydration Hydration: Ice chips - Discharge PostOp Status: Transfer Patient to floor
[2018-05-24] MEDS ORDERED: Naloxone 0.4 MG/ML INJ IVP PRN (13:36)
[2018-05-24] MEDS ORDERED: Ondansetron 4 MG/2 ML VIAL IVP PRN (13:36)
[2018-05-24] MEDS ORDERED: OXYCODONE Oral CONC 10 MG/0.5 ML ORAL.SYG SL PRN (13:36)
[2018-05-24] MEDS: Pantoprazole 40 MG VIAL IVP SCH (14:40)
[2018-05-24] MEDS ORDERED: cefTRIAXone 1,000 MG in 0.9 % Sodium Chloride Mini Bag 100 ML IVPB SCH ×2 (20:00)
[2018-05-25] MEDS ORDERED: Acetaminophen 325 MG TABLET PO ONE (00:25)
[2018-05-25] MEDS: Ketorolac 15 MG/ML VIAL IVP PRN ×2 (02:45→09:13)
[2018-05-25 03:42] LABS: Hematocrit 37.2 % (35.3-44.9); Hemoglobin 12.4 g/dL (11.5-15.4); Mean Corpuscular HGB Conc 33.3 g/dL (31.6-35.5); Mean Corpuscular Hemoglobin 31.5 pg (28.0-33.3); Mean Corpuscular Volume 94.4 fL (83.0-100.0); Mean Platelet Volume 9.8 fL (9.4-12.4); Platelet Count 350 K/mcL (140-400); Red Blood Count 3.94 M/mcL (3.82-4.97); Red Cell Distribution Width 12.4 % (11.5-14.5)
[2018-05-25] MEDS: 0.9 % Sodium Chloride 1,000 ML IVC SCH (04:56)
[2018-05-25] MEDS: *HR* Heparin 5,000 UNIT/ML VIAL SQ SCH (04:57)
[2018-05-25 07:06] VITALS: BP 145/84
--- NOTE | 2018-05-25 07:23 | Discharge Summary ---
Orders not resulted at time of discharge: Pending orders 05/24/18 11:04 Test Result, Urine [URIN] Stat 05/24/18 12:07 XR KUB [XR] Routine 05/24/18 12:44 Surgical Pathology [PTH] Routine Date of Encounter: 05/25/18 Time of Encounter: 07:20 - Discharge Diagnosis (1) UTI (urinary tract infection) Priority: Secondary Status: Acute Assessment and Plan: UTI associated with kidner stone received 3 days of IV antibiotic that we should be adequate however was same 5 more days of Levaquin 250 mg daily Cultures so far no growth Qualifiers: Urinary tract infection type: site unspecified Hematuria presence: with hematuria Qualified Code(s): N39.0 - Urinary tract infection, site not specified; R31.9 - Hematuria, unspecified (2) Leukocytosis Priority: Secondary Status: Acute Assessment and Plan: Secondary to UTI, kidney stone white count is coming down Qualifiers: Leukocytosis type: bandemia Qualified Code(s): D72.825 - Bandemia (3) Obesity Priority: Secondary Status: Chronic Comments: Chronic Qualifiers: Obesity type: due to excess calories Obesity classification: unspecified obesity classification Serious obesity comorbidity presence: unspecified whether serious comorbidity present Qualified Code(s): E66.09 - Other obesity due to excess calories (4) Kidney stone Priority: Primary Status: Acute Assessment and Plan: Patient underwent intervention yesterday of stone extraction no complication cardiology standpoint patient is stable to be discharged Hospital course: Ms. Muller is a 42 year old female Patient with no significant medical problem except for obesity patient was admitted with right flank pain nausea vomiting CT shows a right kidney stone with mild hydronephrosis also has associated UTI patient receiving IV antibiotic Rocephin for about 3 days yesterday underwent bilateral ureteroscopy with laser lithotripsy and stone extraction no complication patient is stable to be discharged home from urology standpoint patient had received adequate antibiotic but however because of the associated kidney stone and UTI would give her 5 more days of Levaquin 250 once a day cultures so fall no growth - Time Spent with Patient Total time spent providing and/or coordinating discharge services: Greater than 30 minutes - Discharge Medications Prescriptions: levoFLOXacin [Levaquin] 250 mg PO DAILY #5 tablet Home Medications: Escitalopram [Lexapro] 20 mg PO DAILY 06/01/17 [History] Topiramate [Topamax] 50 mg PO HS 06/01/17 [History] Fluticasone Propionate Nasal [Flonase] 1 spr NS DAILY 02/24/18 [History] Montelukast [Singulair] 10 mg PO DAILY 02/24/18 [History] traZODone [TraZODone] 50 mg PO HS PRN 02/24/18 [History] Loratadine [Allergy Relief] 10 mg PO DAILY 03/08/18 [History] Aspirin 81 mg PO DAILY #30 tab.chew 03/09/18 [Rx] Nitroglycerin 0.4 mg SL Q5MIN PRN #30 tab.subl 03/09/18 [Rx] Potassium Chloride 40 meq PO BID #1 tab.er.prt 03/09/18 [Rx] Buspirone HCl [Buspar] 10 mg PO BID PRN 05/23/18 [History] Doxycycline 100 mg PO BID 05/23/18 [History] HYDROcodone/Acet 5/325 mg [[place] 5-325 mg] 1 tab PO BID PRN 05/23/18 [History] Omeprazole [PriLOSEC] 20 mg PO DAILY 05/23/18 [History] levoFLOXacin [Levaquin] 250 mg PO DAILY #5 tablet 05/25/18 [Rx] Allergies/Adverse Reactions: 3 Allergy/AdvReac Type Severity Reaction Status Date / Time sulfamethoxazole Allergy See Verified 03/08/18 06:49 [From Bactrim] Comments trimethoprim [From Bactrim] Allergy See Verified 03/08/18 06:49 Comments diphenhydramine AdvReac See Verified 03/08/18 06:49 [From Benadryl] Comments Date of admission: 05/23/18 19:43 Primary care physician: Yamileth Tena CNP Discharging clinician: Caleb Valero Constitutional Vitals: Temp Pulse Resp BP Pulse Ox 97.9 F 65 15 145/84 98 05/25/18 07:00 05/25/18 07:00 05/25/18 07:00 05/25/18 07:00 05/25/18 07:00 Exam: General: Alert and oriented 3; lying in bed in no acute distress Skin:Normal color, no rash, no lesions. HEENT:EOM, pupils equal, round and reactive. Cardiovascular:Normal S1 & S2, no rubs, murmurs or gallops. No JVD. Pulse regular. Lungs:Normal breath sounds, no wheezes or crackles. Abdomen:Soft, non-tender, no rigidity. No CVA tenderness Extremities:No deformity, no edema or tenderness, no joint swelling or clubbing. Neurological:Normal cognition and motor skills. Pulses:Carotid and radial pulses normal +2. Rest of the physical exam is non contributory - Patient Status Disposition: Home, Self-Care Functional capacity at discharge: independent ambulation Overall status at discharge: patient is progressing back to baseline - Discharge Instructions - Diet and Activity Activity: other Diet: advance to your usual diet
--- NOTE | 2018-05-25 08:34 | Urology Progress Note ---
Date of Encounter: 05/25/18 Time of Encounter: 08:32 - Assessment and Plan (1) Kidney stone Current Visit: Yes Status: Acute Assessment and plan: Patient is a 42-year-old female who presents with bilateral ureteral stones who presents one day post operatively from bilateral ureteroscopy, laser lithotripsy , basket stone extraction, and bilateral stent placement. Vital signs are stable and afebrile. Patient appears well and ready to go home. I discussed postoperative expectations and home activities, restrictions, and follow-up. I instructed patient to use oxybutynin 5 mg 2-3 times daily for bladder spasms. Patient will return to the office in 5 days for removal of stents. (2) UTI (urinary tract infection) Current Visit: Yes Status: Acute Assessment and plan: Patient is a 42-year-old female who presents with a history of urinary tract infection. Final urine culture on May 23 showed no significant growth. Patient has been placed on oral Levaquin 250 mg daily for 5 days. Qualifiers: Urinary tract infection type: site unspecified Hematuria presence: with hematuria Qualified Code(s): N39.0 - Urinary tract infection, site not specified; R31.9 - Hematuria, unspecified Progress Note Subjective: feels better Narrative: POD#1. Patient seen and examined sitting upright in bed eating breakfast in no apparent distress. Patient reports pain is improved. Patient states she is experiencing bladder spasms with some incontinence secondary to ureteral stents. Patient is voiding without difficulty. Patient denies fever, chills, flank pain, dysuria, gross hematuria. Objective Initial Vital Signs Temp Pulse Resp BP Pulse Ox 98.3 F 59 16 178/93 99 05/23/18 18:03 05/23/18 18:03 05/23/18 18:03 05/23/18 18:03 05/23/18 18:03 - General physical appearance Present: well developed, well nourished, no distress, no pain - Respiratory Present: normal expansion, normal respiratory effort - Abdomen Present: soft, non tender - Integumentary Present: no rash, no growths, no abnormal pigmentation - Musculoskeletal Present: normal posture - Psychiatric Present: oriented to time, oriented to person, oriented to place, speech is normal, memory intact - Labs 05/25/18 02:41 05/24/18 03:58 Consult Discharge Plan - Plan Referrals: Yamileth Tena [employer] [Primary Care Provider] - Prescriptions: levoFLOXacin [Levaquin] 250 mg PO DAILY #5 tablet Oxybutynin [Ditropan] 5 mg PO TID #15 tablet
[2018-05-25] MEDS ORDERED: levoFLOXacin 250 MG TABLET PO SCH (09:00)
[2018-05-25] MEDS: Pantoprazole 40 MG VIAL IVP SCH (09:13)
[2018-06-02 19:36] LABS: Calculi Mass 24 mg
== END 2018-05-25 10:34 | disposition home or self-care (01) ==
LOC: EMEROOARM 17:58 → 3ANU 17:58
PROVIDERS: ADMIT Internal Medicine; ATTEND Internal Medicine

== ENCOUNTER 2019-04-13 14:40 | Observation (INO) ==
[2019-04-13] MEDS ORDERED: Aspirin 325 MG TABLET PO ONE (15:55)
[2019-04-13 16:01] LABS: Basophils # 0.1 K/mcL (0.0-0.2); Basophils % 0.6 %; Eosinophils # 0.3 K/mcL (0.0-0.6); Eosinophils % 1.5 %; Hematocrit 46.4 % (35.3-44.9); Hemoglobin 15.8 g/dL (11.5-15.4); Immature Granulocytes % 1.1 % (0-4); Lymphocytes # 5.2 K/mcL (0.6-4.6); Lymphocytes % 32.2 %; Mean Corpuscular HGB Conc 34.1 g/dL (31.6-35.5); Mean Corpuscular Volume 94.1 fL (83.0-100.0); Mean Platelet Volume 9.2 fL (9.4-12.4); Monocytes # 1.1 K/mcL (0.0-1.3); Neutrophils # 9.3 K/mcL (1.6-8.9); Platelet Count 396 K/mcL (140-400); Red Blood Count 4.93 M/mcL (3.82-4.97); Red Cell Distribution Width 12.4 % (11.5-14.5); Segmented Neutrophils % 57.6 %; White Blood Count 16.2 K/mcL (4.3-11.1)
[2019-04-13 16:21] LABS: BUN/Creatinine Ratio 31 (6-26); Blood Urea Nitrogen 20 mg/dL (6-20); Calcium 9.6 mg/dL (8.6-10.3); Carbon Dioxide 24 mEq/L (23-29); Chloride 109 mEq/L (98-107); Glucose 91 mg/dL (70-105); Osmolality,Calculated 292 (280-300); Potassium 3.3 mEq/L (3.5-5.1); Sodium 140 mEq/L (136-145); Troponin I < 0.03 ng/mL (< 0.04); eGFR For African Americans > 60 (> 60); eGFR For Non-African Americans > 60 (> 60)
[2019-04-13 17:20] LABS: Bilirubin,Urine Negative (Negative); Blood,Urine Negative (Negative); Clarity,Urine Clear (Clear); Color,Urine Yellow (Yellow); Glucose,Urine (UA) Normal (Normal); Ketones,Urine Negative (Negative); Leukocyte Esterase,Urine Small (Negative); Nitrite,Urine Negative (Negative); Protein,Urine Negative (Neg-Trace); Specific Gravity,Urine 1.023 (1.010-1.025); Urobilinogen,Urine Normal (Normal)
[2019-04-13 17:23] LABS: Bacteria,Urine Moderate per hpf (None-Few); Hyaline Casts,Urine None Seen per lpf (None-Few); Squamous Epithelial Cell,Urine Many per lpf (None-Few)
[2019-04-13] MEDS ORDERED: Ondansetron 4 MG/2 ML VIAL IVP PRN (17:42)
[2019-04-13] MEDS ORDERED: Acetaminophen 325 MG TABLET PO PRN (17:42)
[2019-04-13] MEDS ORDERED: Naloxone 0.4 MG/ML INJ IVP PRN (17:42)
[2019-04-13] MEDS ORDERED: Nitroglycerin 0.4 MG TAB.SUBL SL PRN (17:46)
[2019-04-13] MEDS ORDERED: Ipratropium/Albuterol Neb 3 ML IH PRN (17:47)
[2019-04-13] MEDS: *HR* Heparin 5,000 UNIT/ML VIAL SQ SCH (21:50)
[2019-04-14 03:27] LABS: Basophils # 0.1 K/mcL (0.0-0.2); Basophils % 0.7 %; Eosinophils # 0.3 K/mcL (0.0-0.6); Eosinophils % 2.1 %; Hematocrit 44.8 % (35.3-44.9); Hemoglobin 15.1 g/dL (11.5-15.4); Immature Granulocytes % 1.3 % (0-4); Lymphocytes # 4.5 K/mcL (0.6-4.6); Lymphocytes % 33.2 %; Mean Corpuscular HGB Conc 33.7 g/dL (31.6-35.5); Mean Corpuscular Volume 94.9 fL (83.0-100.0); Mean Platelet Volume 9.2 fL (9.4-12.4); Monocytes % 7.6 %; Neutrophils # 7.5 K/mcL (1.6-8.9); Platelet Count 375 K/mcL (140-400); Red Blood Count 4.72 M/mcL (3.82-4.97); Red Cell Distribution Width 12.7 % (11.5-14.5); Segmented Neutrophils % 55.1 %; White Blood Count 13.6 K/mcL (4.3-11.1)
[2019-04-14 03:44] LABS: BUN/Creatinine Ratio 28 (6-26); Blood Urea Nitrogen 26 mg/dL (6-20); Calcium 9.7 mg/dL (8.6-10.3); Carbon Dioxide 23 mEq/L (23-29); Chloride 109 mEq/L (98-107); Chol/HDL Ratio 4.7 (0-4.9); Cholesterol 188 mg/dL (< 200); Glucose 115 mg/dL (70-105); HDL Cholesterol 40 mg/dL (40-59); LDL Cholesterol,Calculated 120 mg/dL (0-99); Magnesium 2.3 mg/dL (1.6-2.6); Osmolality,Calculated 294 (280-300); Potassium 3.3 mEq/L (3.5-5.1); Sodium 139 mEq/L (136-145); Triglycerides 142 mg/dL (< 150); eGFR For African Americans > 60 (> 60); eGFR For Non-African Americans > 60 (> 60)
[2019-04-14] MEDS: *HR* Heparin 5,000 UNIT/ML VIAL SQ SCH ×3 (05:01→21:23)
[2019-04-14 08:33] LABS: Estimated Average Glucose 108 mg/dl
[2019-04-14] MEDS ORDERED: Regadenoson 0.4 MG/5 ML SYRINGE IVP ONE ×2 (08:39→09:26)
[2019-04-14] MEDS: Loratadine 10 MG TABLET PO SCH (11:22)
[2019-04-14] MEDS: Aspirin Enteric Coated 81 MG Tablet PO SCH (11:22)
[2019-04-14] MEDS: Fluticasone Propionate Nasal 50 MCG/SPRAY BOTTLE NS SCH (11:22)
[2019-04-15 01:31] LABS: Basophils # 0.1 K/mcL (0.0-0.2); Basophils % 0.8 %; Eosinophils # 0.4 K/mcL (0.0-0.6); Eosinophils % 2.7 %; Hematocrit 43.6 % (35.3-44.9); Hemoglobin 14.8 g/dL (11.5-15.4); Immature Granulocytes % 1.3 % (0-4); Lymphocytes # 4.9 K/mcL (0.6-4.6); Lymphocytes % 37.1 %; Mean Corpuscular HGB Conc 33.9 g/dL (31.6-35.5); Mean Corpuscular Hemoglobin 31.9 pg (28.0-33.3); Mean Platelet Volume 9.5 fL (9.4-12.4); Monocytes # 0.9 K/mcL (0.0-1.3); Neutrophils # 6.8 K/mcL (1.6-8.9); Platelet Count 349 K/mcL (140-400); Red Blood Count 4.64 M/mcL (3.82-4.97); Red Cell Distribution Width 12.7 % (11.5-14.5); Segmented Neutrophils % 51.1 %; White Blood Count 13.3 K/mcL (4.3-11.1)
[2019-04-15 01:49] LABS: BUN/Creatinine Ratio 32 (6-26); Blood Urea Nitrogen 26 mg/dL (6-20); Calcium 9.5 mg/dL (8.6-10.3); Carbon Dioxide 21 mEq/L (23-29); Chloride 107 mEq/L (98-107); Glucose 113 mg/dL (70-105); Osmolality,Calculated 288 (280-300); Potassium 3.5 mEq/L (3.5-5.1); Sodium 136 mEq/L (136-145); eGFR For African Americans > 60 (> 60); eGFR For Non-African Americans > 60 (> 60)
[2019-04-15] MEDS: *HR* Heparin 5,000 UNIT/ML VIAL SQ SCH ×2 (05:55→13:17)
[2019-04-15] MEDS: Fluticasone Propionate Nasal 50 MCG/SPRAY BOTTLE NS SCH (10:27)
[2019-04-15] MEDS: Aspirin Enteric Coated 81 MG Tablet PO SCH (10:27)
[2019-04-15] MEDS: Loratadine 10 MG TABLET PO SCH (10:27)
[2019-04-15 11:46] VITALS: BP 134/84
== END 2019-04-15 16:00 | disposition home or self-care (01) ==
LOC: EMEROOARM 14:40 → 3BNU 14:40 → SUATTDRO 17:31 → 3BNU 18:09
PROVIDERS: ADMIT Internal Medicine Nephrology; ATTEND Internal Medicine